=== PATIENT | female | born 1995 | race African-American/Black ===

== ENCOUNTER 2018-06-25 18:30 | Emergency (ER) | payer OTHER ==
--- NOTE | 2018-06-25 18:51 | ED Physician Documentation ---
PD HPI ABD PAIN - Stated complaint Stated Complaint: ABD PAIN/18 WKS PREG - Chief complaint Chief Complaint: Abd Pain - History obtained from History obtained from: Patient - History of Present Illness Timing - onset: Other (This is a 22-year-old at 18 weeks gestation whose had abdominal pain throughout the but she has had worse diffuse abdominal pain especially lower for the last 3 days, during which time she has not felt the baby move. She may have had some fluid loss yesterday but no bleeding. She says pain is especially bad if she moves or twists or bends. At rest it is not bad. She has mild nausea. She denies bowel or bladder problems.) Review of Systems Constitutional: denies: Fever, Chills Cardiac: reports: Reviewed and negative Respiratory: reports: Reviewed and negative PD PAST MEDICAL HISTORY - Present Medications Home Medications: Ambulatory Orders Medication Instructions Recorded Confirmed Ferrous Gluconate [Iron] 240 mg PO DAILY 06/25/18 06/25/18 Pnv95/Ferrous Fumarate/FA 1 each PO DAILY 06/25/18 06/25/18 [ Formula] - Allergies Allergies/Adverse Reactions: Allergies Allergy/AdvReac Type Severity Reaction Status Date / Time No Known Drug Allergies Allergy Verified 06/25/18 18:37 PD ED PE NORMAL - Vitals Vital signs reviewed: Yes - General General: Alert and oriented X 3, No acute distress - Abdomen Abdomen: Normal bowel sounds, Soft, Other (Mild lower abdominal tenderness, especially in the left lower quadrant greater than right lower quadrant. Bedside ultrasound demonstrates single live intrauterine with heart rate of 154 and positive motion.) - Neuro Neuro: Alert and oriented X 3, Normal speech Results - Vitals Vitals: Vital Signs - 24 hr 06/25/18 06/25/18 06/25/18 18:35 18:53 19:49 Temperature 36.3 C L 36.4 C L Heart Rate 82 79 Respiratory 18 18 16 Rate Blood Pressure 112/64 110/65 O2 Saturation 100 98 Oxygen O2 Source Room air - Labs Labs: Laboratory Tests 06/25/18 06/25/18 06/25/18 18:52 19:02 19:02 WBC 5.7 RBC 3.90 L Hgb 8.7 L Hct 28.1 L MCV 71.9 L MCH 22.3 L MCHC 31.0 L RDW 19.4 H Plt Count 274 MPV 7.0 L Neut # (Auto) 3.6 Lymph # (Auto) 1.6 Otero # (Auto) 0.5 Eos # (Auto) 0.0 Baso # (Auto) 0.0 Absolute Nucleated RBC 0.00 Nucleated RBC % 0.1 Sodium 133 L Potassium 3.5 Chloride 103 Carbon Dioxide 22 Anion Gap 8.0 BUN 9 Creatinine 0.3 L Estimated GFR (MDRD) 331 Glucose 85 Calcium 9.1 Total Bilirubin 0.3 AST 14 ALT < 10 L Alkaline Phosphatase 39 L Total Protein 6.8 Albumin 3.4 Globulin 3.4 Albumin/Globulin Ratio 1.0 Lipase 28 Urine Color YELLOW Urine Clarity HAZY Urine pH 6.0 Ur Specific [place] >=1.030 H Urine Protein NEGATIVE Urine Glucose (UA) NEGATIVE Urine Ketones NEGATIVE Urine Occult Blood NEGATIVE Urine Nitrite NEGATIVE Urine Bilirubin NEGATIVE Urine Urobilinogen 0.2 (NORMAL) Ur Leukocyte Esterase SMALL H Urine RBC 0-5 Urine WBC 4-5 Ur Squamous Epith Cells MANY Squamous H Urine Bacteria Rare Ur Microscopic Review INDICATED Urine Culture Comments NOT INDICATED PD MEDICAL DECISION MAKING - ED course ED course: 22-year-old woman in the second trimester presents with lower abdominal pain, if anything it lateralizes to the left. Her white blood cell count is reassuring as is bedside ultrasound. She is modestly anemic and close primary care follow-up was advised. Departure - Departure Disposition: 01 Home, Self Care Clinical Impression: Abdominal pain Condition: Good Record reviewed to determine appropriate education?: Yes Instructions: ED Preg Established Normal Sxs Comments: Return tomorrow if worse or sooner for new symptoms. Followup with your OB this week. Discharge Date/Time: 06/25/18 19:53
[2018-06-25 19:08] LABS: BILIRUBIN,URINE NEGATIVE (NEGATIVE); GLUCOSE, URINE (UA) NEGATIVE (NEGATIVE); KETONES,URINE (UA) NEGATIVE (NEGATIVE); LEUKOCYTE ESTERASE, URINE SMALL (NEGATIVE); NITRITE,URINE NEGATIVE (NEGATIVE); OCCULT BLOOD,URINE NEGATIVE (NEGATIVE); PROTEIN,URINE NEGATIVE (NEGATIVE); UROBILINOGEN,URINE 0.2 (NORMAL) E.U./dL (NORMAL)
[2018-06-25 19:10] LABS: BASOPHILS % (AUTO) 0.3 %; EOSINOPHILS % (AUTO) 0.3 %; HGB - HEMOGLOBIN 8.7 g/dL (12.0-16.0); LYMPHOCYTES # (AUTO) 1.6 10^3/uL (1.5-3.5); LYMPHOCYTES % (AUTO) 27.4 %; MEAN CORPUSCULAR HEMOGLOBIN 22.3 pg (27.0-31.0); MEAN CORPUSCULAR VOLUME 71.9 fL (81.0-99.0); MONOCYTES # (AUTO) 0.5 10^3/uL (0.0-1.0); MONOCYTES % (AUTO) 8.9 %; NEUTROPHILS # (AUTO) 3.6 10^3/uL (1.5-6.6); NEUTROPHILS % (AUTO) 63.1 %; PLT - PLATELET COUNT 274 10^3/uL (130-450); RED CELL DISTRIBUTION WIDTH 19.4 % (12.0-15.0); WHITE BLOOD COUNT 5.7 x10^3/uL (4.8-10.8)
[2018-06-25 19:22] LABS: CLARITY,URINE HAZY (CLEAR)
[2018-06-25 19:23] LABS: ALBUMIN 3.4 g/dL (3.2-5.5); ALKALINE PHOSPHATASE 39 IU/L (42-121); ALT ALANINE AMINOTRANSFERASE < 10 IU/L (10-60); AST ASPARTATE AMINOTRANSFERASE 14 IU/L (10-42); BILIRUBIN,TOTAL 0.3 mg/dL (0.2-1.0); BUN - BLOOD UREA NITROGEN 9 mg/dL (6-20); CREATININE 0.3 mg/dL (0.4-1.0); GFR - MDRD 331 (>89); LIPASE 28 U/L (22-51); TOTAL PROTEIN 6.8 g/dL (6.7-8.2)
[2018-06-25 19:23] LABS: BACTERIA,URINE Rare /HPF (None Seen); RBC,URINE 0-5 /HPF (0-5); SQUAMOUS EPITHELIAL CELL,UR MANY Squamous (<= Few)
[2018-06-25 19:34] LABS: CALCIUM 9.1 mg/dL (8.5-10.3); CARBON DIOXIDE - CO2 22 mmol/L (21-32); CHLORIDE 103 mmol/L (101-111); GLUCOSE 85 mg/dL (70-100); SODIUM 133 mmol/L (135-145)
[2018-06-25 19:53] VITALS: BP 110/65
== END 2018-06-25 19:53 | disposition home or self-care (01) ==
LOC: ED 18:30
DX: O26.892 Other specified pregnancy related conditions, second trimester (principal); R10.30 Lower abdominal pain, unspecified; Z3A.18 18 weeks gestation of pregnancy
CPT/HCPCS: 36415; 80053; 81001; 81003; 83690; 85025; 87086; 99283